=== PATIENT | male | born 1945 | race Caucasian/White ===

== ENCOUNTER 2020-06-06 13:12 | Outpatient (CLI) | payer OTHER | END 2020-06-06 13:21 | disposition home or self-care (01) | LOC: SONOGRAMA 13:12 | DX: M25.511 Pain in right shoulder (principal) ==

== ENCOUNTER 2020-09-26 09:50 | Outpatient (CLI) | payer OTHER | END 2020-09-26 09:57 | disposition home or self-care (01) | LOC: RAD 09:50 | DX: S80.911S Unspecified superficial injury of right knee, sequela (principal) ==